=== PATIENT | female | born 1950 | race Caucasian/White ===

== ENCOUNTER 2024-06-30 16:04 | Emergency (ER) | payer OTHER ==
[2024-06-30 17:04] LABS: SARS-CoV-2 Antigen CONTROL BLUE LINE VIS/BG OK; SARS-CoV-2 Antigen Rapid Res Negative (Negative)
[2024-06-30] MEDS ORDERED: METHYLPREDNISOLONE 125 MG INJ ONE (17:30)
[2024-06-30] MEDS ORDERED: IPRATROPIUM BROM 0.5MG/2.5ML ONE (17:30)
[2024-06-30] MEDS ORDERED: LEVALBUTEROL 1.25 MG/3 ML NEB ONE (17:30)
--- NOTE | 2024-06-30 18:00 | RAD REPORT ---
EXAMINATION: TWO VIEW CHEST XR CLINICAL INDICATION: Female, 73 years old. [facility] MAIN Congestion;Cough Bed: TECHNIQUE: 2 view radiographs of the chest were performed. COMPARISON: 11/18/2017 FINDINGS: The lungs are hyperexpanded suggesting COPD. Small left basilar patchy airspace opacity. No pneumotho rax or sizable effusion. The heart is normal in size. Mediastinal contours are unremarkable. IMPRESSION: Small left basilar patchy airspace opacities may reflect early airspace disease. Findings of COPD aga in seen.
[2024-06-30 18:59] LABS: Absolute Basophils 0.1 K/uL (0-0.5); Absolute Lymphocytes (CBC) 1.5 K/uL (0.7-4.9); Absolute Monocytes 1.5 K/uL (0.1-1.3); Absolute Neutrophil 14.2 K/uL (1.8-8.0); Basophils % 0.5 % (0-1.3); Eosinophils % 0.1 % (0-4.4); Hematocrit 42.6 % (36.0-45.0); Hemoglobin 14.2 g/dL (12.0-15.0); Lymphocytes % 8.6 % (15.3-44.8); MCH 29.5 pg (27.0-35.0); MCHC 33.3 g/dL (32.0-36.0); MCV 88.7 fL (80-100); Monocytes % 8.5 % (3.3-12.3); Neutrophils % 82.3 % (41.7-73.7); Platelets 336 thou/uL (152-406); Red Cell Distribution Width 14.1 % (12.1-15.2)
[2024-06-30 19:06] LABS: PT Prothrombin Time 12.9 SECONDS (9.4-12.5); PTT, Activated Partial Thromb 29.8 SECONDS (24.3-36.9); Protime INR 1.16
[2024-06-30 19:18] LABS: Albumin 3.2 g/dL (3.4-5.0); Albumin/Globulin Ratio 0.7 (1.1-1.8); Anion Gap 9.5 mEq/L (5.0-15.0); Bilirubin Total 0.5 mg/dL (0.2-1.0); Globulin 4.7 g/dL (2.3-3.5); Potassium 3.5 mEq/L (3.5-5.1); Protein, Total 7.9 g/dL (6.4-8.2)
[2024-06-30] MEDS ORDERED: NA CHLORIDE 0.9% 1,000 ML ONE (19:33)
[2024-06-30] MEDS ORDERED: CEFTRIAXONE 1000 MG/VIAL ONE (20:20)
--- NOTE | 2024-06-30 20:51 | EDPHYS ---
Physician Documentation [facility] Name: Chey Sena Age: 73 yrs Sex: Female : 1950 Arrival Date: 06/30/2024 Time: 16:04 Bed 8 Private MD: ED Physician Stew Sidhu HPI: 06/30 16:35 This 73 yrs old Female presents to ER via Ambulatory with complaints of Fever, Cough, kb Congestion. 16:35 Pt is a 73 year old female who presents for cough, congestion and fever that started 10 kb days ago. States there were 13 people at her house for New Years and 9 of them got similar symptoms. States she has been trying OTC treatment, but it isn't going away. Denies shortness of breath. No aggravating or alleviating factors. . Historical: - Allergies: 16:31 PENICILLINS; ll1 16:31 Bactrim; ll1 16:31 Erythromycin; ll1 16:31 Codeine; ll1 16:31 Ceclor; ll1 - PMHx: 16:31 Pneumonia; Migraine; bronchiostasis; ll1 - PSHx: 16:31 Tonsillectomy; D\T\C; ll1 - Immunization history:: Adult Immunizations up to date. - Infectious Disease History:: Denies. - Social history:: Smoking status: Patient denies any tobacco usage or history of. ROS: 16:35 Constitutional: As per HPI kb Exam: 16:35 Constitutional: This is a well developed, well nourished patient who is awake, alert, kb and in no acute distress. Head/Face: Normocephalic, atraumatic. ENT: Moist Mucous membranes Cardiovascular: Tachycardic rate Skin: Warm, dry with normal turgor. Normal color. MS/ Extremity: Pulses equal, no cyanosis. Neurovascular intact. Full, normal range of motion. Neuro: Awake and alert, GCS 15, oriented to person, place, time, and situation. 16:35 Respiratory: the patient does not display signs of respiratory distress, Respirations: normal, Breath sounds: wheezing: expiratory that is moderate, is scattered, 19:16 ECG was reviewed by the Attending Physician. kb Vital Signs: 16:34 BP 165 / 89; Pulse 119; Resp 17; Temp 99.8; Pulse Ox 96% ; Weight 55.34 kg; Height 5 ll1 ft. 9 in. ; Pain 0/10; 19:18 BP 178 / 93; Pulse 108; Resp 22; Temp 98.3; Pulse Ox 100% on 10 lpm Nebulizer Mask; bm8 Pain 0/10; 20:45 BP 168 / 86; Pulse 100; Resp 25; Temp 98.3; Pulse Ox 99% on R/A; Pain 0/10; bm8 16:34 Body Mass Index 18.02 (55.34 kg, 175.26 cm) ll1 16:34 Pain Scale: Adult ll1 19:18 Pain Scale: Adult bm8 20:45 Pain Scale: Adult bm8 [place] Coma Score: 19:18 Eye Response: spontaneous(4). Motor Response: obeys commands(6). Verbal Response: bm8 oriented(5). Total: 15. MDM: 16:22 Medical Screening Exam initiated kb 19:46 Differential diagnosis: URI, bronchitis, pneumonia. Data reviewed: vital signs, nurses kb notes. Consideration of Admission/Observation Escalation of care including admission/observation considered. admission considered and recommended. Pt states she cannot stay in the hospital. States she has a disabled son at home and needs to be there for his care. Given strict return precautions. . Counseling: I had a detailed discussion with the patient and/or guardian regarding the historical points, exam findings, and any diagnostic results supporting the discharge/admit diagnosis, lab results, radiology results, the need for further work-up and treatment in the hospital. 06/30 16:29 Order name: Flu; Complete Time: 17:10 kb 06/30 16:29 Order name: SARS-COV-2 Antigen Rapid; Complete Time: 17:04 kb 06/30 16:37 Order name: Blood Culture Adult (2) kb 06/30 16:37 Order name: CBC with Diff; Complete Time: 19:21 kb 06/30 16:37 Order name: CMP; Complete Time: 19:21 kb 06/30 16:37 Order name: Lactate w/ 2H reflex if indic.; Complete Time: 19:21 kb 06/30 16:37 Order name: Protime (+inr); Complete Time: 19:06 kb 06/30 16:37 Order name: Ptt, Activated; Complete Time: 19:06 kb 06/30 16:29 Order name: Chest Pa And Lat (2 Views) XRAY; Complete Time: 18:06 kb 06/30 16:37 Order name: EKG; Complete Time: 16:38 kb 06/30 16:37 Order name: Cardiac monitoring; Complete Time: 19:14 kb 06/30 16:37 Order name: EKG - Nurse/Tech; Complete Time: 19:14 kb 06/30 16:37 Order name: IV Saline Lock - Large Bore; Complete Time: 19:14 kb 06/30 16:37 Order name: Labs collected and sent; Complete Time: 18:53 kb 06/30 16:37 Order name: O2 Per Protocol; Complete Time: 19:14 kb 06/30 16:37 Order name: O2 Sat Monitoring; Complete Time: 19:14 kb 06/30 16:37 Order name: Vital Signs; Complete Time: 19:14 kb EC:16 Rate is 104 beats/min. Rhythm is regular. QRS [place] is Normal. MA interval is normal at kb 176 msec. QRS interval is normal at 88 msec. QT interval is normal at 483 msec. Administered Medications: 19:17 Not Given (pt states that ): levalbuterol1.25 mg Inhalation once bm8 19:17 Drug: Ipratropium Inhalation Aerosol 0.5 mg Inhalation once Route: Inhalation; bm8 20:46 Follow up: Response: No adverse reaction bm8 19:17 Drug: MethylPrednisoLONE IVP 125 mg IVP once Route: IVP; Site: right antecubital; bm8 20:46 Follow up: Response: No adverse reaction bm8 19:37 Drug: NS 0.9% IV 1000 ml IV at 1000 ml once; to be given as a bolus over 60 minutes bm8 Route: IV; Rate: 1000 ml; Site: right antecubital; 20:57 Follow up: Response: No adverse reaction; IV Status: Completed infusion; IV Intake: bm8 600ml 20:24 Drug: Rocephin IV 1 grams IV at calculated rate once; Given slow IV push per pharmacy bm8 instructions Route: IV; Rate: calculated rate; Site: right antecubital; 20:45 Follow up: Response: No adverse reaction; IV Status: Completed infusion; IV Intake: [id number] Disposition Summary: 06/30/24 20:51 Discharge Ordered Notes: Location: Home kb Condition: Stable kb Diagnosis - Pneumonia, unspecified organism kb Followup: kb - With: Emergency Department - When: As needed - Reason: Worsening of condition Followup: kb - With: Private Physician - When: 2 - 3 days - Reason: Recheck today's complaints, Continuance of care, Re-evaluation by your physician Discharge Instructions: - Discharge Summary Sheet kb - Community-Acquired Pneumonia, Adult, [id number] kb Forms: - Medication Reconciliation Form kb - Antibiotic Education kb - Prescription Opioid Use kb - Patient Portal Instructions kb - Leadership Thank You Letter kb Prescriptions: - Prednisone 20 mg Oral Tablet - take 1 tablet ORAL route once daily for 5 days; 5 tablet; Refills: 0, Product kb Selection Permitted - Zithromax 500 mg Oral Tablet - take 1 tablet ORAL route once daily for 5 days; 5 tablet; Refills: 0, Product kb Selection Permitted Signatures: Dispatcher [employer] EDMS Doreen Eaton, MAIL CLERKS SUPERVISOR-C MAIL CLERKS SUPERVISOR-Makayla [place], RN RN ll1 Tova Juares, RN RN db Jairo James RN RN bm8 Corrections: (The following items were deleted from the chart) 16:38 16:38 BLOOD CULTURE*+BA.LAB.BRZ ordered. EDMS EDMS 16:38 16:38 CBC+H.LAB.BRZ ordered. EDMS EDMS 16:38 16:38 COMPREHENSIVE METABOLIC PANEL+C.LAB.BRZ ordered. EDMS EDMS 16:38 16:38 LACTATE+C.LAB.BRZ ordered. EDMS EDMS 16:38 16:38 PROTIME (+INR)+COAG.LAB.BRZ ordered. EDMS EDMS 16:38 16:38 PTT, ACTIVATED+COAG.LAB.BRZ ordered. EDMS EDMS 16:38 16:35 Constitutional: This is a well developed, well nourished patient who is awake, kb alert, and in no acute distress. Head/Face: Normocephalic, atraumatic. ENT: Moist Mucous membranes Cardiovascular: Regular rate Skin: Warm, dry with normal turgor. Normal color. MS/ Extremity: Pulses equal, no cyanosis. Neurovascular intact. Full, normal range of motion. Neuro: Awake and alert, GCS 15, oriented to person, place, time, and situation. kb
--- NOTE | 2024-06-30 20:51 | ER ---
Nurse's Notes [facility] Name: Chey Sena Age: 73 yrs Sex: Female : 1950 Arrival Date: 06/30/2024 Time: 16:04 Bed 8 Private MD: Diagnosis: Pneumonia, unspecified organism Presentation: 06/30 16:30 Chief complaint: Patient states: Fever, cough, congestion started 06/20. Coronavirus ll1 screen: Client denies travel out of the [place] in the last 14 days. congestion, cough unrelated to allergies, fatigue, fever, Client presents with at least one sign or symptom that may indicate coronavirus-19. Standard/surgical mask placed on the client. Ebola Screen: Patient denies travel to an Ebola-affected area in the 21 days before illness onset. Initial Sepsis Screen: Does the patient meet any 2 criteria? No. Patient's initial sepsis screen is negative. Does the patient have a suspected source of infection? No. Patient's initial sepsis screen is negative. Risk Assessment: Do you want to hurt yourself or someone else? Patient reports no desire to harm self or others. Onset of symptoms was June 20, 2024. 16:30 Method Of Arrival: Ambulatory ll1 16:30 Acuity: POOJA 3 ll1 Triage Assessment: 16:31 General: Appears in no apparent distress. Behavior is calm, cooperative, appropriate ll1 for age, Reports fever for. EENT: Reports nasal congestion. Respiratory: Reports cough that is. Historical: - Allergies: 16:31 PENICILLINS; ll1 16:31 Bactrim; ll1 16:31 Erythromycin; ll1 16:31 Codeine; ll1 16:31 Ceclor; ll1 - PMHx: 16:31 Pneumonia; Migraine; bronchiostasis; ll1 - PSHx: 16:31 Tonsillectomy; D\T\C; ll1 - Immunization history:: Adult Immunizations up to date. - Infectious Disease History:: Denies. - Social history:: Smoking status: Patient denies any tobacco usage or history of. Screenin:30 [facility] ED Fall Risk Assessment (Adult) History of falling in the last 3 months, db including since admission No falls in past 3 months (0 pts) Confusion or Disorientation No (0 pts) Intoxicated or Sedated No (0 pts) Impaired Gait No (0 pts) Mobility Assist Device Used No (0 pt) Altered Elimination No (0 pt) Score/Fall Risk Level 0 - 2 = Low Risk Oriented to surroundings, Maintained a safe environment. Abuse screen: Denies threats or abuse. Denies injuries from another. Nutritional screening: No deficits noted. Tuberculosis screening: No symptoms or risk factors identified. Assessment: 17:27 Reassessment: Patient and/or family updated on plan of care and expected duration. Pain ll1 level reassessed. 17:30 Reassessment: Patient appears in no apparent distress at this time. Patient and/or db family updated on plan of care and expected duration. Pain level reassessed. Patient is alert, oriented x 3, equal unlabored respirations, skin warm/dry/pink. General: Appears in no apparent distress. comfortable, Behavior is calm, cooperative. Neuro: Level of Consciousness is awake, alert, obeys commands, Oriented to person, place, time, situation. Cardiovascular: Capillary refill < 3 seconds. Respiratory: Airway is patent Respiratory effort is even, unlabored, Respiratory pattern is regular, symmetrical. 19:18 Reassessment: Patient appears in no apparent distress at this time. Patient and/or bm8 family updated on plan of care and expected duration. Pain level reassessed. Patient is alert, oriented x 3, equal unlabored respirations, skin warm/dry/pink. Patient denies pain at this time. General: Appears in no apparent distress. comfortable, Behavior is calm, cooperative, appropriate for age. Pain: Denies pain. Neuro: No deficits noted. Level of Consciousness is awake, alert, obeys commands, Oriented to person, place, time, situation, Appropriate for age. Cardiovascular: Denies chest pain, Capillary refill < 3 seconds in bilateral fingers Patient's skin is warm and dry. Respiratory: Airway is patent Trachea midline Respiratory effort is even, unlabored, Respiratory pattern is regular, symmetrical, Breath sounds with crackles in left lower lobe, right lower lobe, left posterior lower lobe, right posterior middle lobe and right posterior lower lobe. GI: No signs and/or symptoms were reported involving the gastrointestinal system. : No signs and/or symptoms were reported regarding the genitourinary system. EENT: No signs and/or symptoms were reported regarding the EENT system. Derm: No signs and/or symptoms reported regarding the dermatologic system. Musculoskeletal: No signs and/or symptoms reported regarding the musculoskeletal system. 20:45 Reassessment: Patient appears in no apparent distress at this time. Patient and/or bm8 family updated on plan of care and expected duration. Pain level reassessed. Patient is alert, oriented x 3, equal unlabored respirations, skin warm/dry/pink. Patient denies pain at this time. Patient states feeling better. Patient states symptoms have improved. Vital Signs: 16:34 BP 165 / 89; Pulse 119; Resp 17; Temp 99.8; Pulse Ox 96% ; Weight 55.34 kg; Height 5 ll1 ft. 9 in. ; Pain 0/10; 19:18 BP 178 / 93; Pulse 108; Resp 22; Temp 98.3; Pulse Ox 100% on 10 lpm Nebulizer Mask; bm8 Pain 0/10; 20:45 BP 168 / 86; Pulse 100; Resp 25; Temp 98.3; Pulse Ox 99% on R/A; Pain 0/10; bm8 16:34 Body Mass Index 18.02 (55.34 kg, 175.26 cm) ll1 16:34 Pain Scale: Adult ll1 19:18 Pain Scale: Adult bm8 20:45 Pain Scale: Adult bm8 Mae Coma Score: 19:18 Eye Response: spontaneous(4). Motor Response: obeys commands(6). Verbal Response: bm8 oriented(5). Total: 15. ED Course: 16:07 Patient arrived in ED. mr 16:22 Wilmer Eatonistin, [facility] kb 16:22 Stew Sidhu MD is Attending Physician. kb 16:26 Arm band placed on. ll1 16:31 Triage completed. ll1 16:40 SARS-COV-2 Antigen Rapid Sent. ll1 16:40 Flu Sent. ll1 17:27 Chest Pa And Lat (2 Views) XRAY In Process Unspecified. EDMS 17:27 Patient placed in an exam room, on a stretcher. ll1 18:53 Inserted saline lock: 20 gauge in right antecubital area, using aseptic technique. am7 Blood collected. Flushed with 10 mL NS. 19:17 Jairo James, RN is Primary Nurse. bm8 19:18 Patient has correct armband on for positive identification. Placed in gown. Bed in low bm8 position. Call light in reach. Client placed on continuous cardiac and pulse oximetry monitoring. NIBP monitoring applied. evaporator on. Pulse ox on. NIBP on. Door closed. Noise minimized. Warm blanket given. Pillow given. Verbal reassurance given. Head of bed elevated. 19:18 No provider procedures requiring assistance completed. Oxygen administered via a bm8 nebulizer mask. Response to oxygen therapy: symptoms improved. 20:57 Provided Education on: post er care. bm8 20:57 IV discontinued, intact, bleeding controlled, No redness/swelling at site. Pressure bm8 dressing applied. Administered Medications: 19:17 Not Given (pt states that ): levalbuterol1.25 mg Inhalation once bm8 19:17 Drug: Ipratropium Inhalation Aerosol 0.5 mg Inhalation once Route: Inhalation; bm8 20:46 Follow up: Response: No adverse reaction bm8 19:17 Drug: MethylPrednisoLONE IVP 125 mg IVP once Route: IVP; Site: right antecubital; bm8 20:46 Follow up: Response: No adverse reaction bm8 19:37 Drug: NS 0.9% IV 1000 ml IV at 1000 ml once; to be given as a bolus over 60 minutes bm8 Route: IV; Rate: 1000 ml; Site: right antecubital; 20:57 Follow up: Response: No adverse reaction; IV Status: Completed infusion; IV Intake: bm8 600ml 20:24 Drug: Rocephin IV 1 grams IV at calculated rate once; Given slow IV push per pharmacy bm8 instructions Route: IV; Rate: calculated rate; Site: right antecubital; 20:45 Follow up: Response: No adverse reaction; IV Status: Completed infusion; IV Intake: [id number] Medication: 19:18 VIS not applicable for this client. bm8 Intake: 20:45 IV: 50ml; Total: 50ml. bm8 20:57 IV: 600ml; Total: 650ml. bm8 Outcome: 20:51 Discharge ordered by MD. herr 20:57 Discharged to home ambulatory, bm8 20:57 Condition: stable 20:57 Discharge instructions given to patient, Instructed on discharge instructions, follow up and referral plans. Demonstrated understanding of instructions, follow-up care, medications, Prescriptions given X 2, 20:58 Patient left the ED. bm8 Signatures: Dispatcher [employer] EDMS Doreen Eaton, CERTIFIED ENERGY MANAGER-C CERTIFIED ENERGY MANAGER-Ckb Jessica Nunez, Reg Reg mr Makayla Gallardo, RN RN ll1 Tova Juares, RN RN db Jairo James RN RN bm8 Tonya Henao am7 Corrections: (The following items were deleted from the chart) 17:21 Patient placed in an exam room, on a stretcher, ll1 ll1 17:22 Reassessment: Patient and/or family updated on plan of care and expected ll1 duration. Pain level reassessed. ll1
[2024-07-03 15:35] VITALS: BP 168/86; TEMP 98.3; O2SAT 99
--- NOTE | 2024-07-05 12:14 | EKG ---
Test Date: 2024-06-30 Test Time: 19:09:22 Stamp Redemption Clerk: AM MEASUREMENT RESULTS: Intervals: Rate: 104 NM: 176 QRSD: 88 QT: 368 QTc: 483 [place]: P: 67 NM: 176 QRS: 93 T: 93 INTERPRETIVE STATEMENTS: Sinus tachycardia Nonspecific ST abnormality Abnormal ECG Compared to ECG 03/31/2013 19:44:10 ST (T wave) deviation now present Ventricular premature complex(es) no longer present Atrial abnormality no longer present Right-axis deviation no longer present Incomplete right bundle-branch block no longer present Electronically Signed On 07-05-24 12:10:33 ENTRY LEVEL MARKETING ASSISTANT by Tyler Verma
== END 2024-06-30 20:58 | disposition home or self-care (01) ==
LOC: ER 16:04
DX: J18.9 Pneumonia, unspecified organism (principal); Z11.52 Encounter for screening for COVID-19
CPT/HCPCS: 96365; 96361; 87040; 85025; 36415; 85610; 83605; 85730; 80053; 87804 ×2; 71046; 96375; 99285; 87811; J7644; J2919; J7030; J0696; 93005; J7614